=== PATIENT | female | born 1985 | race Hispanic/Latino ===

== ENCOUNTER 2019-01-28 07:30 | Inpatient (IN) | payer OTHER ==
[2019-01-27 14:40] LABS: RPR Titer ND
[2019-01-27 14:49] LABS: Urine Appearance CLOUDY; Urine Bilirubin NEGATIVE (NEG); Urine Blood NEGATIVE (NEG); Urine Color YELLOW; Urine Glucose NEGATIVE (NEG); Urine Protein NEGATIVE (NEG); Urine Specific Gravity <=1.005 (1.005-1.030); Urine Urobilinogen 0.2 mg/dL (0.2-1.0)
[2019-01-27 14:54] LABS: Urine Microscopic Reflex NO UMIC
[2019-01-27 14:55] LABS: Absolute Lymphocytes (CBC) 1.7 K/uL (0.7-4.9); Absolute Monocytes 0.5 K/uL (0.1-1.3); Absolute Neutrophil 5.3 K/uL (1.8-8.0); Basophils % 0.4 % (0-1.3); Eosinophils % 1.5 % (0-4.4); Hematocrit 36.9 % (36.0-45.0); Lymphocytes % 22.6 % (15.3-44.8); MPV 11.5 fL (7.6-11.3); Monocytes % 6.8 % (3.3-12.3)
--- NOTE | 2019-01-28 09:29 | PREOPHP ---
Date of Admission: 01/28/2019 History Of Present Illness: Ms. Vernon is a 33-year-old female, 3, para 1-1- 0-2, now at 37 weeks gestation. She has been followed by me during this with history of pr ior delivery, prior rapid labor, anemia, rubella nonimmune, and cholestasis of . Be cause cholestasis of , delivery at 37 weeks is indicated. She has been persistently breech presentation for the last 3 weeks, and had undergone attempted external version by the Maternal- medicine specialist through [facility] in Home, which was unsuccessful. Because of that she is sched uled for primary section tomorrow. Past Medical History: Please see record. Family History: Please see record. Review of Systems: She reports no recent cough, cold, fever, or chills. No recent nausea, vomiting. She denies any leticia ast lumps or knots. She denies any bowel or bladder issues. has been active. Physical Examination: General: female, in no apparent distress. Neck: Supple without adenopathy or thyromegaly. Lungs: Clear. Cardiac: Regular rate and rhythm without murmurs. Breasts: Not examined. Abdomen: Estimated weight of approximately 7 pounds. Pelvic: Not performed. Extremities: No cyanosis, clubbing, or edema. Impression: 1.Thirty-seven week . 2.Cholestasis of . 3.Persistent breech presentation. Plan: The patient will undergo primary section for persistent breech presentation. The ris ks and benefits are discussed. She has signed operative permit in my presence. MANUEL/WESLY Voice ID: [id number]
[2019-01-28] MEDS ORDERED: Ringers Lactate 1,000 ML IV PRN (10:12)
[2019-01-28] MEDS ORDERED: CARBOPROST TROME 250 MCG/ML IM PRN ×2 (10:12→13:59)
[2019-01-28] MEDS ORDERED: METHYLERGONOVINE 0.2MG/ML AMP IM PRN ×2 (10:12→13:59)
--- OUTSIDE RECORDS SUMMARY | 2019-01-28 10:16 | XMS REPORT ---
:1985 [facility] Address [address] [place] [address] Dr. Rios [address] [place] [id number] Care Team Providers Name Role Phone Unavailable Unavailable Unavailable Problems This patient has no known problems. Allergies, Adverse Reactions, Alerts This patient has no known allergies or adverse reactions. Medications This patient has no known medications.
[2019-01-28 10:59] VITALS: BMI 37.5
[2019-01-28] MEDS ORDERED: CEFAZOLIN/SWI 2gm 2 GM/20 ML SYR IV SCH (11:00)
[2019-01-28] MEDS ORDERED: Ringers Lactate 1,000 ML IV SCH (11:00)
[2019-01-28] MEDS ORDERED: OXYTOCIN/LR 20 UNIT/1,000 ML BAG IV SCH (11:00)
[2019-01-28] MEDS ORDERED: NA CIT/CITRIC AC 30 ML ORAL UDC PO ONE (12:00)
--- NOTE | 2019-01-28 12:02 | P.PN ---
Date of Service: 01/28/19 Pt does not feel infant has turned, apparent vtx right upper quad, as was on office ultrasound yesterday, pelvic, no vertex felt, pp high. Plan, will proceed with primary for persistent breech presentation with cholestasis of .
[2019-01-28] MEDS ORDERED: METOCLOPRAMIDE 10 MG/2mL INJ ONE (12:13)
[2019-01-28] MEDS ORDERED: FAMOTIDINE 20 MG/2 ML VIAL IV ONE (12:14)
[2019-01-28] MEDS ORDERED: MORPHINE SULFATE/PF 1 MG/ML (10 ML AMP) ONE (12:27)
[2019-01-28] MEDS ORDERED: OXYTOCIN 10 UNIT/ML ML IV ONE (12:28)
[2019-01-28] MEDS ORDERED: EPHEDRINE SULF 50 MG/ML VIAL ONE (12:28)
[2019-01-28] MEDS ORDERED: KETAMINE HCL 500 MG/5 ML VIAL ONE (12:52)
[2019-01-28] MEDS ORDERED: MIDAZOLAM HCL 2 MG/2 ML INJ ONE (12:52)
[2019-01-28] MEDS ORDERED: METOCLOPRAMIDE 10 MG/2mL INJ IV SCH (13:00)
[2019-01-28] MEDS ORDERED: METHYLERGONOVINE 0.2 MG TAB PO PRN (13:59)
[2019-01-28] MEDS ORDERED: ONDANSETRON 4 MG (ODT) TAB PO PRN (13:59)
[2019-01-28] MEDS ORDERED: Oxycodone HCl/Acetaminophen 1 TAB TAB PO PRN ×2 (13:59)
--- NOTE | 2019-01-28 14:05 | P.BOP ---
Preoperative diagnosis: 37 week , cholestasis of , breech presentation, Postoperative diagnosis: same, viable male delivered Primary procedure: Cat Tender: Brooks Bedolla Estimated blood loss: 1000ml Specimen: placenta Anesthesia: Spinal Complications: None Drain(s): Urinary catheter Transferred to: Other (278) Condition: Good
[2019-01-28 15:19] VITALS: O2SAT 100
[2019-01-28] MEDS ORDERED: Ringers Lactate 4,000 ML IV ONE (15:57)
[2019-01-28] MEDS ORDERED: PROMETHAZINE 25 MG/ML VIAL ONE (16:12)
[2019-01-28] MEDS ORDERED: DIPHENHYDRAMINE 50 MG/ML VIAL IV PRN (18:04)
[2019-01-28] MEDS ORDERED: PROMETHAZINE 25 MG/ML VIAL IV PRN (18:06)
[2019-01-28] MEDS: OXYTOCIN/LR 20 UNIT/1,000 ML BAG IV SCH (20:30)
[2019-01-28 20:43] LABS: RPR (Rapid Plasma Reagin) NON-REACT (NON-REACT)
[2019-01-29] MEDS: OXYTOCIN/LR 20 UNIT/1,000 ML BAG IV SCH (03:57)
[2019-01-29 05:26] LABS: Absolute Lymphocytes (CBC) 1.5 K/uL (0.7-4.9); Absolute Monocytes 0.7 K/uL (0.1-1.3); Absolute Neutrophil 7.5 K/uL (1.8-8.0); Basophils % 0.4 % (0-1.3); Eosinophils % 1.8 % (0-4.4); Hematocrit 31.1 % (36.0-45.0); Lymphocytes % 15.6 % (15.3-44.8); MPV 11.2 fL (7.6-11.3); Monocytes % 6.6 % (3.3-12.3); RBC Red Blood Cell Count 3.54 M/uL (3.86-4.86)
--- NOTE | 2019-01-29 06:50 | P.PN ---
Date of Service: 01/29/19 S-No complaints O-Afeb, vs stable, bandage dry A-Satisfactory P-Regular diet, dc iv and camp, ambulate
[2019-01-29] MEDS ORDERED: FAMOTIDINE 20 MG/2 ML VIAL IV ONE (12:04)
[2019-01-29] MEDS: IBUPROFEN 200 MG TAB PO PRN (15:07)
[2019-01-29] MEDS ORDERED: IBUPROFEN 200 MG TAB PO ONE (15:28)
[2019-01-29] MEDS ORDERED: MEASLES,MUMPS,RUBELLA VAC 0.5ML SQVAC ONE (18:07)
[2019-01-30] MEDS: IBUPROFEN 200 MG TAB PO PRN (01:30)
[2019-01-30 07:13] VITALS: BP 126/71; TEMP 97.6
[2019-01-30] MEDS ORDERED: Tdap (Diph,Pertuss(Acell),Tet Vac) 0.5 ML SYR IMVAC ONE (07:20)
[2019-01-30] MEDS ORDERED: MEASLES,MUMPS,RUBELLA VAC 0.5ML SQVAC ONE (07:48)
--- NOTE | 2019-01-30 10:16 | DS ---
Final Hospital Discharge Diagnoses: 37 week , persistent breech presentation with failed ex ternal version, cholestasis of . Complications: None. Procedures: Spinal block anesthesia, primary section, delivery of viable male infant in leticia ech presentation. Hospital Course: The patient is a 33-year-old, , female, 3, para 1-1-0-2 at 37 weeks' gestation, followed by me during this with complications of cholestasis of pregna ncy and now persistent breech presentation. Because of the cholestasis, indicated delivery at 37 wee ks was performed, but because of persistent breech presentation with failed external version attempt through the [facility], we proceed with primary section. She deliv ered an 8-pound 4-ounce male infant, 8 and 9. She was dismissed on the second postoperative da y, ambulatory, on a select diet with routine post- section activity restrictions with prescri ption for Tylenol No. 3 #15, to continue taking her iron and vitamins. She is to discontinu e the Ursodiol that she had been on antenatally for the cholestasis. She was dismissed with the usua l post- section activity restrictions and to be seen in my office in 1 week. Lab work obtain ed during this hospital stay included an admission hemoglobin and hematocrit of 12.1 and 36.9, dismis robyn 10.3 and 31.1, a negative urinalysis, nonreactive RPR. MPG/MODL Voice ID: [id number] Report ID: [id number]
--- NOTE | 2019-01-30 10:22 | OP ---
Surgeon: Guicho Crump MD Nutrition Services Manager: Nutrition Services Manager surgeon: Otoniel Bedolla MD. Anesthesiologist: Dr. Case. Preoperative Diagnoses: 37-week , cholestasis of , persistent breech presentation with failed external version attempt. Procedure: Spinal block anesthesia, primary section with delivery of viable male in footling breech presentation. Postoperative Diagnoses: 37-week , cholestasis of , persistent breech presentation with failed external version attempt. Description Of Procedure: After a satisfactory level spinal block anesthesia was obtained and the alesia rob had received 2 g of Ancef for antibiotic prophylaxis, she was prepped and draped in the usual f ashion for abdominal surgery. A Pfannenstiel skin incision was made corresponding to her prior abdom inoplasty incision. This was carried down to the fascia with generally sharp dissection. This was s eparated from the underlying rectus muscles. These were divided in the midline. The peritoneum iden tified and incised. Vesicouterine peritoneum incised. Bladder flap developed. A low-transverse kuldip rine incision was made. An 8-pound 4-ounce male was delivered in footling breech presentation . The cord was clamped, cut, and the infant was placed in a warmer. Cord blood was obtained. The c ervix was dilated from above with a ring clamp which was passed from the operative field. The uterus was closed in 2 layers utilizing 0 Vicryl suture in a running nonlocking fashion, second layer used to imbricate the first. Vesicouterine peritoneum approximated with running suture of 3-0 Vicryl. Co elza, gutters were cleaned of amniotic fluid, debris, and blood clot. The fascia was closed with runn ing sutures of #1 Vicryl from either margin to the middle with subcutaneous interrupted sutures of 3- 0 Vicryl, subdermal suture of 3-0 Vicryl, and skin was closed with 4-0 Monocryl subcuticular suture. The patient was taken to recovery room in satisfactory condition with Tinajero catheter in place with sponge and needle counts correct x2. MANUEL/RODL Voice ID: [id number] Report ID: [id number]
[2019-01-31 03:09] LABS: HBsAG Nonreactive (Nonreactive)
== END 2019-01-30 09:10 | disposition home or self-care (01) | DRG 786 ==
LOC: 2ND-WC 10:13
PROVIDERS: ADMIT Specialist; ATTEND Specialist
PROC: 10D00Z1 Extraction of Products of Conception, Low, Open Approach (ICD-10-PCS; principal; 2019-01-28 12:30)
DX: O32.1XX0 Maternal care for breech presentation, not applicable or unspecified (principal); K83.1 Obstruction of bile duct; O26.62 Liver and biliary tract disorders in childbirth; Z3A.37 37 weeks gestation of pregnancy; Z37.0 Single live birth; Z23 Encounter for immunization
CPT/HCPCS: 36415; 81003; 85025; 86592; 86850; 86900; 86901; 87340; 88307; 90471; 90707; 90715; 99218; J0690; J2210; J2250; J2550; J2590; J2765

== ENCOUNTER 2019-12-11 | Emergency (ER) | payer OTHER ==
--- OUTSIDE RECORDS SUMMARY | 2019-12-11 22:57 | XMS REPORT ---
:1985 [facility] [address] [place] [address] Dr. Rios [address] [place] [id number] Care Team Providers Name Role Phone Unavailable Unavailable Unavailable Problems This patient has no known problems. Allergies, Adverse Reactions, Alerts This patient has no known allergies or adverse reactions. Medications This patient has no known medications.
--- NOTE | 2019-12-11 23:31 | ER ---
Nurse's Notes [facility] Name: Umm Vernon Age: 34 yrs Sex: Female : 1985 Arrival Date: 12/11/2019 Time: 22:59 Bed External Waiting Private MD: Diagnosis: Presentation: 12/10 23:00 Note patient changed her mind. she does not want to be seen, as she verbalized she is rr5 concern for her medical bill. ED Course: :59 Patient arrived in ED. es Administered Medications: No medications were administered Outcome: 23:01 Eloped from patient exam room, before seeing physician Time discovered patient gone: rr5 December 11, 2019 at 23:02 23:01 Condition: unchanged 23:30 Patient left the ED. rr5 Signatures: Elissa Way Patrick, [employer] pm1 Raimundo Renner Brandon Thapa, RN RN rr5 Corrections: (The following items were deleted from the chart) 23:18 23:08 Raimundo Renner is Primary Nurse. [facility] 23:18 23:09 Sung Sosa NP is PHCP. 1 rr5 23:18 23:09 Bill Kirk MD is Attending Physician. 1 rr5 23:18 23:16 Raimundo Renner is Primary Nurse. [email or web address]
--- NOTE | 2019-12-11 23:31 | EDPHYS ---
Physician Documentation [facility] Name: Umm Vernon Age: 34 yrs Sex: Female : 1985 Arrival Date: 12/11/2019 Time: 22:59 Bed External Waiting Private MD: ED Physician MDM: 12/10 23:13 Patient medically screened. pm1 23:28 ED course: No patient in the room. Patient left prior to triage. pm1 Administered Medications: No medications were administered Disposition: 12/11/19 23:30 Patient left the facility before being seen by provider. - Patient left due to other. Signatures: Sung Sosa NP SHANK BONER pm1 Brandon Thapa, RN RN rr5
== END 2019-12-11 23:30 | disposition left against medical advice (07) ==
DX: Z53.21 Procedure and treatment not carried out due to patient leaving prior to being seen by health care provider (principal)